=== PATIENT | male | born 1975 | race Caucasian/White ===

== ENCOUNTER 2019-03-12 23:20 | Emergency (ER) | payer MEDICAID, OTHER ==
[~2019-03-12] VITALS: Ht 182.9 cm; Wt 86.2 kg
[2019-03-12 23:20] VITALS: BP 115/70
--- NOTE | 2019-03-12 23:20 | NUR ---
PT TAKEN TO BED 9
--- NOTE | 2019-03-12 23:45 | NUR ---
Dr. Noel examining patient.
[2019-03-12] MEDS ORDERED: ACETAMINOPHEN EXTRA STRENGTH 500 MG TAB PO ONE (23:50)
[2019-03-12] MEDS ORDERED: NACL 0.9% 1,000 ML IV ONE (23:50)
[2019-03-12] MEDS ORDERED: LIDOCAINE/EPI 1% 1:100000 20 ML VIAL INJ ONE (23:50)
--- NOTE | 2019-03-12 23:55 | NUR ---
PT TAKEN TO CT
--- NOTE | 2019-03-13 00:31 | NUR ---
PT BIB [facility]RI[facility] S/P FALL AT [facility] EARLIER TONIGHT. PER FRIENDS PT "PASSED OUT" FOR ABOUT 2-3 MIN, +LOC, LACERATION NOTED TO RT FOREHEAD. PT WAS SEEN BY MEDICS ON SCENE AND DENIED FURTHER CARE. PER FRIENDS PT KEPT REPEATING THE SAME QUESTIONS ON THE WAY BACK HOME. SO THEY BROUGHT HIM TO ER. PT ON ARRIVAL IS AWAKE, ALERT TO NAME AND PAST EVENTS BUT DOES NOT RECALL FALL OR [place], PT CONTINUES TO ASK SAME QUESTIONS EVERY 10 MIN. VSS, PERRL, NO ACTIVE BLEEDING TO LACERATION.
[2019-03-13 00:34] LABS: HEMATOCRIT 38.2 % (36-52); HEMOGLOBIN 12.9 g/dL (12.0-18.0); MEAN CORPUSCULAR HEMOGLOBIN 31 pg (27-31); MEAN CORPUSCULAR HGB CONC 34 g/dL (33-37); MEAN CORPUSCULAR VOLUME 91.3 fL (80-94); PLATELET COUNT (AUTO) 197 K/uL (140-450); RED BLOOD CELL COUNT(AUTO) 4.18 MIL/uL (4.20-6.10); RED CELL DISTRIBUTION WIDTH 14.1 % (11.6-13.7); WHITE BLOOD COUNT (AUTO) 10.3 K/uL (4.8-10.8)
[2019-03-13 00:51] LABS: ANION GAP 8.3 (8-16); CARBON DIOXIDE 32.9 mmol/L (21-32); CHLORIDE 106 mmol/L (98-107); CREATININE 1.6 mg/dL (0.7-1.3); GFR ARICAN-AMERICAN 60 mL/min (>90); GLUCOSE 98 mg/dL (74-106); POTASSIUM 4.2 mmol/L (3.5-5.1); SODIUM SERUM 143 mmol/L (136-145); UREA NITROGEN, BLOOD 21 mg/dL (7-18)
[2019-03-13] MEDS ORDERED: KETOROLAC 30 MG/ML VIAL IVP ONE (01:00)
--- NOTE | 2019-03-13 01:00 | NUR ---
PT LAYING IN BED RESTING, VSS, NO NEW NEEDS AT THIS TIME.
[2019-03-13 01:01] LABS: EOSINOPHILS % (MANUAL) 2 % (0-4); LYMPHOCYTES % (MANUAL) 6 % (20-46); MONOCYTES % (MANUAL) 6 % (5-12)
[2019-03-13 01:02] LABS: BARBITURATE, URINE NEG. ng/ml (NEG <=200); BENZODIAZEPINE, URINE NEG. ng/mL (NEG <=200); CANNABINOID, URINE POS. ng/mL (NEG <=50); COCAINE, URINE NEG. ng/mL (NEG <=300); OPIATE, URINE NEG. ng/mL (NEG <=2000); PHENCYCLIDINE SCREEN,URINE NEG. ng/mL (NEG <=25)
[2019-03-13 01:04] LABS: ASPARTATE AMINOTRANSFERASE 20 U/L (15-37); TOTAL BILIRUBIN 0.4 mg/dL (0.0-1.0)
--- NOTE | 2019-03-13 01:40 | NUR ---
Patient discharged with v/s stable. Written and verbal after care instructions given and explained. Patient alert, oriented and verbalized understanding of instructions. Wheel Chair Assisted with by caregiver. All questions addressed prior to discharge. ID band removed. Patient advised to follow up with PMD. Rx of NAPROSYN, TYLENOL given. Patient educated on indication of medication including possible reaction and side effects. Opportunity to ask questions provided and answered.
[2019-03-13 01:41] VITALS: BP 112/56
== END 2019-03-13 01:40 | disposition home or self-care (01) ==
LOC: MED 23:20
DX: S01.01XA Laceration without foreign body of scalp, initial encounter (principal); F12.10 Cannabis abuse, uncomplicated; Z85.47 Personal history of malignant neoplasm of testis; W18.30XA Fall on same level, unspecified, initial encounter; Y93.89 Activity, other specified; Y92.89 Other specified places as the place of occurrence of the external cause; Y99.8 Other external cause status
CPT/HCPCS: 12001; 36415; 70450; 72125; 80053; 80305; 85025; 93005; 96374; 99284; G0482; J1885; J2001; J7030